=== PATIENT | male | born 1980 | race Caucasian/White ===

== ENCOUNTER 2022-04-17 13:14 | Inpatient (IN) | payer BC, MEDICAID ==
--- NOTE | 2022-04-17 14:13 | ED ---
Psych HPI - General Chief Complaint: Psychiatric Symptoms Stated Complaint: Suicidal Time Seen by Provider: 04/17/22 13:35 Source: patient, EMS Mode of arrival: EMS - History of Present Illness MD Complaint: suicidal ideation, feels depressed -: week(s) Associated Psychiatric Symptoms: depression, suicidal ideation History of same: Yes Quality: getting worse Improves With: none Worsens With: none Associated Symptoms: denies other symptoms - Related Data Home Medications Medication Instructions Recorded Confirmed LORazepam 0.5 mg PO DAILY PRN 04/17/22 04/17/22 Lisdexamfetamine Dimesylate 40 mg PO DAILY 04/17/22 04/17/22 [Vyvanse] Venlafaxine HCl ER [Effexor Xr] 75 mg PO DAILY 04/17/22 04/17/22 Allergies Allergy/AdvReac Type Severity Reaction Status Date / Time No Known Allergies Allergy Verified 04/17/22 20:11 Review of Systems ROS Statement: Those systems with pertinent positive or pertinent negative responses have been documented in the HPI. ROS Other: All systems not noted in ROS Statement are negative. Constitutional: Denies: fever, chills Respiratory: Denies: cough, dyspnea Cardiovascular: Denies: chest pain, palpitations Gastrointestinal: Denies: abdominal pain, vomiting, diarrhea Genitourinary: Denies: dysuria, hematuria Musculoskeletal: Denies: back pain Skin: Denies: rash Neurological: Denies: headache, weakness Psychiatric: Reports: depression, suicidal thoughts. Denies: auditory hallucinations, visual hallucinations, homicidal thoughts Past Medical History Past Medical History: No Reported History History of Any Multi-Drug Resistant Organisms: None Reported Past Surgical History: No Surgical Hx Reported Past Psychological History: Anxiety, Depression Smoking Status: Never smoker Past Alcohol Use History: Heavy Past Drug Use History: None Reported - Past Family History family Additional Family Medical History / Comment(s): no reported history of cancer or heart disease General Exam Limitations: no limitations General appearance: alert, in no apparent distress Head exam: Present: atraumatic, normocephalic Eye exam: Present: normal appearance. Absent: scleral icterus, conjunctival injection ENT exam: Present: normal oropharynx Neck exam: Present: normal inspection Respiratory exam: Present: normal lung sounds bilaterally. Absent: respiratory distress, wheezes, rales, rhonchi, stridor Cardiovascular Exam: Present: regular rate, normal rhythm, normal heart sounds. Absent: systolic murmur, diastolic murmur, rubs, gallop GI/Abdominal exam: Present: soft. Absent: distended, tenderness, guarding, rebound, rigid, mass Extremities exam: Present: normal inspection, normal capillary refill. Absent: pedal edema, calf tenderness Back exam: Present: normal inspection. Absent: CVA tenderness (R), CVA tenderness (L) Neurological exam: Present: alert Psychiatric exam: Present: depressed, suicidal ideation. Absent: agitated, anxious, flat affect, manic, homicidal ideation Skin exam: Present: warm, dry, intact, normal color. Absent: rash Course Vital Signs 04/17/22 04/17/22 13:16 22:41 Temperature 97.7 F Pulse Rate 124 H Pulse Rate [ 88 Pulse Oximetery ] Respiratory 20 18 Rate Blood Pressure 169/94 Blood Pressure 161/111 [Left Arm] O2 Sat by Pulse 96 98 Oximetry Medical Decision Making - Lab Data Result diagrams: 04/18/22 06:12 04/21/22 13:08 Lab Results 04/17/22 Range/Units 19:51 Coronavirus (PCR) Not Detected (Not Detectd) Disposition Clinical Impression: Mood disorder, Suicidal ideation Disposition: ADMITTED IP TO THIS HOSP Condition: Fair Is patient prescribed a controlled substance at d/c from ED?: No
[2022-04-17] MEDS ORDERED: LORazepam 1 MG TAB PO STA (18:43)
[2022-04-17] MEDS ORDERED: ACETAMINOPHEN TAB 325 MG TAB PO PRN (21:24)
[2022-04-17] MEDS ORDERED: MAG HYDROX/AL HYDROX/SIMETH 30 ML CUP PO PRN (21:24)
[2022-04-17] MEDS ORDERED: MAGNESIUM HYDROXIDE 2,400 MG/10 ML CUP PO PRN (21:24)
[2022-04-17] MEDS ORDERED: LORazepam 1 MG/0.5 ML VIAL IM PRN (21:28)
[2022-04-17] MEDS ORDERED: haloperidoL 5 MG TAB PO PRN (21:28)
[2022-04-17] MEDS ORDERED: LORazepam 1 MG TAB PO PRN (21:28)
[2022-04-17] MEDS ORDERED: HALOPERIDOL LACTATE 5 MG/ML 1 ML VIAL IM PRN (21:28)
[2022-04-17] MEDS: chlordiazePOXIDE 25 MG CAP PO SCH (23:58)
--- NOTE | 2022-04-18 03:33 | P.MDCNMH ---
History of Present Illness H&P Date: 04/17/22 Chief Complaint: psych eval 41 year old male denies any past medical history except for depression patient comes in for evaluation due to suicidal thoughts, he is going through a divorce, and feels overwhelmed, very depressed and hopeless. denies any medical concerns , denies fever, chills, URI , abd pain , nausea or vomiting denies smoking, or illicit drugs, occasional alcohol Review of Systems Pertinent positives as noted in HPI. All other systems were reviewed and are negative Past Medical History Past Medical History: No Reported History History of Any Multi-Drug Resistant Organisms: None Reported Past Surgical History: No Surgical Hx Reported Past Psychological History: Anxiety, Depression Smoking Status: Never smoker Past Alcohol Use History: Heavy Past Drug Use History: None Reported - Past Family History family Additional Family Medical History / Comment(s): no reported history of cancer or heart disease Medications and Allergies Home Medications Medication Instructions Recorded Confirmed Type LORazepam 0.5 mg PO DAILY PRN 04/17/22 04/17/22 History Lisdexamfetamine Dimesylate 40 mg PO DAILY 04/17/22 04/17/22 History [Vyvanse] Venlafaxine HCl ER [Effexor Xr] 75 mg PO DAILY 04/17/22 04/17/22 History Allergies Allergy/AdvReac Type Severity Reaction Status Date / Time No Known Allergies Allergy Verified 04/17/22 20:11 Physical Exam Vitals: Vital Signs Temp Pulse Pulse Resp BP BP Pulse Ox 04/17/22 22:41 97.7 F 88 18 161/111 98 04/17/22 13:16 124 H 20 169/94 96 Intake and Output 04/17/22 04/17/22 04/18/22 14:59 22:59 06:59 Other: Weight 111.13 kg 110.308 kg Constitutional: No acute distress, conversant cooperative Eyes: Anicteric sclerae, moist conjunctiva, Pupils equal round reactive to light ENMT: NC/AT Oropharynx clear, no erythema, or exudates Neck: Supple, no masses, or JVD No carotid bruits No thyromegaly Lungs: Clear to auscultation Clear to percussion Normal respiratory effort, no accessory muscle use Cardiovascular: Heart regular in rate and rhythm, No murmurs, gallops, or rubs No peripheral edema Abdominal: Soft Nontender, no guarding, rebound or rigidity Abdomen moving with respiration Normoactive bowel sounds No hepatomegaly, No splenomegaly No palpable mass No abdominal wall hernia noted Skin: Normal temperature, tone, texture, turgor No induration No subcutaneous nodules No rash, lesions No ulcers Extremities: No digital cyanosis No clubbing Pedal pulses intact and symmetrical Radial pulses intact and symmetrical No calf tenderness Psychiatric: Alert and oriented to person, place and time depressed affect Neuro Muscles Strength 5/5 in all 4 extremities Sensation to light touch grossly present throughout Cranial nerves II-XII grossly intact Lymphatics: no palpable cervical or supraclavicular lymph nodes Cranial Nerve Examination - Cranial Nerves Cranial Nerve II- Optic: Intact Cranial Nerve III- Oculomotor: Intact Cranial Nerve IV- Trochlear: Intact Cranial Nerve V- Trigeminal: Intact Cranial Nerve - Abducens: Intact Cranial Nerve VII- Facial: Intact Cranial Nerve VIII- Auditory: Intact Cranial Nerve IX- Glossopharyngeal: Intact Cranial Nerve X- Vagus: Intact Cranial Nerve XI- Accessory: Intact Cranial Nerve XII- Hypoglossal: Intact Assessment and Plan Assessment: depression and suicidal ideation management per psych obesity counseled regarding life style modification and weight loss follow up blood work Thank you for allowing us to participate in the care of this patient. We will follow peripherally. Do not hesitate to contact us with questions. Someone can be reached from the [facility] hospitalist group at all hours of the day at [phone].
[2022-04-18 07:07] LABS: Basophils % (A) 0 %; Eosinophils # (A) 0.1 k/uL (0-0.7); Eosinophils % (A) 2 %; HCT 48.3 % (39.0-53.0); Lymphocytes % (A) 28 %; MCH 32.3 pg (25.0-35.0); MCHC 33.1 g/dL (31.0-37.0); MCV 97.5 fL (80.0-100.0); Mean Platelet Volume 7.7; Monocytes # (A) 0.2 k/uL (0-1.0); Monocytes % (A) 5 %; Neutrophils # (A) 2.2 k/uL (1.3-7.7); Neutrophils % (A) 62 %; Platelet Count 240 k/uL (150-450); RBC 4.95 m/uL (4.30-5.90); RDW 12.9 % (11.5-15.5); WBC 3.5 k/uL (3.8-10.6)
[2022-04-18 07:41] LABS: ALT 115 U/L (4-49); AST 73 U/L (17-59); African American GFR (CKD) >90 (>60 ml/min/1.73 sqM); Albumin 4.2 g/dL (3.5-5.0); Alkaline Phosphatase 64 U/L (38-126); Anion Gap 11 mmol/L; Bilirubin, Delta 0.4 mg/dL (0.0-0.2); Bilirubin,Unconjugated 0.3 mg/dL (0.0-1.1); Blood Urea Nitrogen 8 mg/dL (9-20); Calcium 8.8 mg/dL (8.4-10.2); Carbon Dioxide 27 mmol/L (22-30); Chloride 101 mmol/L (98-107); Glucose 92 mg/dL (74-99); Non-African American GFR(CKD) >90 (>60 ml/min/1.73 sqM); Potassium 4.6 mmol/L (3.5-5.1); Sodium 139 mmol/L (137-145); Total Bilirubin 0.7 mg/dL (0.2-1.3); Total Protein 6.5 g/dL (6.3-8.2)
[2022-04-18] MEDS ORDERED: VENLAFAXINE HCL ER 75 MG CAP PO SCH (09:00)
[2022-04-18] MEDS: chlordiazePOXIDE 25 MG CAP PO SCH ×3 (09:04→20:42)
[2022-04-18] MEDS: NICOTINE 14MG/24HR PATCH TRANSDERM SCH (09:05)
[2022-04-18] MEDS: THIAMINE 100 MG TAB PO SCH (09:05)
[2022-04-18] MEDS: FOLIC ACID 1 MG TAB PO SCH (09:05)
[2022-04-18 10:51] LABS: Chol/HDL Ratio 3.61 Ratio; LDL Cholesterol,Calculated 165.8 mg/dL (0.0-131.0)
[2022-04-18] MEDS ORDERED: VENLAFAXINE HCL ER 75 MG CAP PO STA (11:23)
--- NOTE | 2022-04-18 12:00 | P.HP ---
Psychiatric H&P - . H&P Date: 04/18/22 History & Physical: Allergies Allergy/AdvReac Type Severity Reaction Status Date / Time No Known Allergies Allergy Verified 04/17/22 20:11 Vital Signs Temp 97.8 F 04/18/22 06:23 Pulse 96 04/18/22 06:23 Resp 18 04/18/22 06:23 BP 143/66 04/18/22 06:23 Pulse Ox 98 04/17/22 22:41 FiO2 Intake & Output 04/17/22 04/18/22 04/18/22 18:59 06:59 18:59 Weight 111.13 kg 110.308 kg Laboratory Last Values WBC 3.5 k/uL (3.8-10.6) L 04/18/22 06:12 RBC 4.95 m/uL (4.30-5.90) 04/18/22 06:12 Hgb 16.0 gm/dL (13.0-17.5) 04/18/22 06:12 Hct 48.3 % (39.0-53.0) 04/18/22 06:12 MCV 97.5 fL (80.0-100.0) 04/18/22 06:12 MCH 32.3 pg (25.0-35.0) 04/18/22 06:12 MCHC 33.1 g/dL (31.0-37.0) 04/18/22 06:12 RDW 12.9 % (11.5-15.5) 04/18/22 06:12 Plt Count 240 k/uL (150-450) 04/18/22 06:12 MPV 7.7 04/18/22 06:12 Neutrophils % 62 % 04/18/22 06:12 Lymphocytes % 28 % 04/18/22 06:12 Monocytes % 5 % 04/18/22 06:12 Eosinophils % 2 % 04/18/22 06:12 Basophils % 0 % 04/18/22 06:12 Neutrophils # 2.2 k/uL (1.3-7.7) 04/18/22 06:12 Lymphocytes # 1.0 k/uL (1.0-4.8) 04/18/22 06:12 Monocytes # 0.2 k/uL (0-1.0) 04/18/22 06:12 Eosinophils # 0.1 k/uL (0-0.7) 04/18/22 06:12 Basophils # 0.0 k/uL (0-0.2) 04/18/22 06:12 Sodium 139 mmol/L (137-145) 04/18/22 06:12 Potassium 4.6 mmol/L (3.5-5.1) 04/18/22 06:12 Chloride 101 mmol/L (98-107) 04/18/22 06:12 Carbon Dioxide 27 mmol/L (22-30) 04/18/22 06:12 Anion Gap 11 mmol/L 04/18/22 06:12 BUN 8 mg/dL (9-20) L 04/18/22 06:12 Creatinine 0.83 mg/dL (0.66-1.25) 04/18/22 06:12 Est GFR (CKD-EPI)AfAm >90 (>60 ml/min/1.73 sqM) 04/18/22 06:12 Est GFR (CKD-EPI)NonAf >90 (>60 ml/min/1.73 sqM) 04/18/22 06:12 Glucose 92 mg/dL (74-99) 04/18/22 06:[address] Glu mg/dL 112 04/18/22 06:12 Hemoglobin A1c 5.5 % (0.0-6.0) 04/18/22 06:12 Calcium 8.8 mg/dL (8.4-10.2) 04/18/22 06:12 Total Bilirubin 0.7 mg/dL (0.2-1.3) 04/18/22 06:12 Conjugated Bilirubin 0.0 mg/dL (0.0-0.3) 04/18/22 06:12 Unconjugated Bilirubin 0.3 mg/dL (0.0-1.1) 04/18/22 06:12 Delta Bilirubin 0.4 mg/dL (0.0-0.2) H 04/18/22 06:12 AST 73 U/L (17-59) H 04/18/22 06:12 ALT 115 U/L (4-49) H 04/18/22 06:12 Alkaline Phosphatase 64 U/L (38-126) 04/18/22 06:12 Total Protein 6.5 g/dL (6.3-8.2) 04/18/22 06:12 Albumin 4.2 g/dL (3.5-5.0) 04/18/22 06:12 Triglycerides 118.00 mg/dL (0.00-149.00) 04/18/22 06:12 Cholesterol 262.00 mg/dL (0.00-200.00) H 04/18/22 06:12 LDL Cholesterol, Calc 165.8 mg/dL (0.0-131.0) H 04/18/22 06:12 VLDL Cholesterol, Calc 23.60 mg/dL (5.00-40.00) 04/18/22 06:12 HDL Cholesterol 72.60 mg/dL (40.00-60.00) H 04/18/22 06:12 Cholesterol/HDL Ratio 3.61 Ratio 04/18/22 06:12 TSH 5.180 mIU/L (0.465-4.680) H 04/18/22 06:12 Coronavirus (PCR) Not Detected (Not Detectd) 04/17/22 19:51 04/18/22 11:59 IDENTIFYING DATA: Patient is a , employed, 41-year-old male with significant history of depression who presents to our hospital for depression and attempted suicide in the context of divorce. HPI: Patient presented to the hospital on 04/17/2022, brought into the hospital by EMS after an attempted suicide. The patient reports that he was planning to kill himself over the past week however have the opportunity yesterday as he was driving down to [place] for work. He reports that he pulled over at a rest stop and had his firearm with him. He states that he had been drinking and had "mustered out the liquid courage to do so." He states that his called him and was able to convince him not to kill himself. Police and his brother were notified and the patient was brought to the hospital. He was subsequently admitted to the psychiatric unit and signed formal voluntary. Upon evaluation the psychiatric unit, the patient reports that he has been feeling increasingly depressed for the past 6 years however upon learning of his 's intention to his divorce on March 14 of this year, his depression has significantly worsened. The patient does endorse significant symptoms of depression including anhedonia, decreased hygiene and grooming, irregular appetite, increased sleep, decreased energy, hopelessness, helplessness, as well as suicidal ideation. He reports that he has been contemplating suicide for the past week however only "obtained the courage." to try to kill himself prior to this admission. Aside from this time with the firearm, the patient reports no previous suicide. The patient reports ongoing stressors with his . He states that depressive symptoms have caused a significant strain in their relationship but ultimately led up to this divorce. He reports that he has had extremely low self-esteem and excessive periods of sleep much to her annoyance. He also informs his provider that they have not been sexually active for the past year and a half. In regards to other mood symptoms, the patient does report a history of excessive energy and increased goal-directed activity. He describes being awake during farias for a few days on end with only 30 minutes to an hour of sleep per night. He however is not reporting any significant impulsivity, grandiosity, or mood lability. He denies any history of pressured speech. The patient is denying any significant history of auditory or visual hallucinations. He denies any paranoia or other delusions. He does admit to a negative internal dialogue and is often self-deprecating and informing him that he is worthless. He is admitted for further evaluation and management of depression. PAST PSYCHIATRIC HISTORY: Patient states that he has been previously diagnosed with depression and anxiety. Prior to going to [facility] for outpatient treatment, he was open with Dr Milan. He is currently prescribed a regimen of Effexor, Vyvanse, and Ativan. This is the patient's first inpatient psychiatric admission. Aside from this current episode, he reports no previous attempts at suicide. PMH: Past Medical History: No Reported History History of Any Multi-Drug Resistant Organisms: None Reported Past Surgical History: No Surgical Hx Reported Past Psychological History: Anxiety, Depression Smoking Status: Never smoker Past Alcohol Use History: Heavy Past Drug Use History: None Reported ALLERGIES: NO KNOWN DRUG ALLERGIES CHEMICAL DEPENDENCY HISTORY: The patient reports no tobacco use, marijuana use, or illicit drug use. He does report a history of experimenting with various drugs and marijuana in the past. The patient states that he has been drinking approximately 6 alcoholic beverages per night for the past 6 months. He denies any history of substance abuse treatment or withdrawal. FAMILY PSYCHIATRIC/SUBSTANCE USE HISTORY: The patient reports that his father's side of the family has depression. He reports a family history of suicide. SOCIAL HISTORY: Patient was born and raised in [place]. He attended [employer]. He is currently to his Shantell for the past 8 years. There are undergoing the process of divorce. They have a 10-year-old son together named Hugo. 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 He lives with his and son. He reports no orthodoxy affiliation. MENTAL STATUS EXAM: General Appearance: Patient appears to be stated age is alert, directable, and attempts to cooperate. Patient appears to have disheveled hygiene and grooming. Behavior: Patient is seated without any agitated behavior. Psychomotor slowing was evident. Tearful. Speech: Patient's speech is fluent and nonpressured. Spontaneous. Mood/Affect: Patient reports their mood is depressed, affect is congruent and withdrawn and melancholic. Suicidality/Homicidality: Patient is currently denying any suicidal or homicidal ideation. Admits to suicidal ideation over the past week leading up to this attempt. Perceptions: Patient denies any visual hallucinations and denies any auditory hallucinations Though content/process: There is no evidence of any delusional thought content a nd thought process is dysphoric. Memory and concentration: AOX3, grossly intact for the purposes of this session. Can spell "WORLD" backwards Judgment and insight: Fair STRENGTHS/WEAKNESSES: strength is that patient has significant supports. Weakness is that patient dealing with divorce and engages in heavy alcohol use. INTELLECT: average IMPRESSIONS: Major depressive disorder, recurrent, severe Alcohol use disorder Rule out bipolar depression PLAN: -Patient is admitted under voluntary status to [facility] for stabilization of psychiatric symptoms and safety. Patient signed adult voluntary form and medication consent and is placed in patient's chart. Patient is at high risk for suicide due to recent attempt, access to firearms, ongoing divorce/psychosocial stressors, and active organic depression. -Medications : Increase Effexor XR to 150 mg by mouth daily for depression/anxiety Start Seroquel 50 mg by mouth at bedtime for mood augmentation Librium for alcohol withdrawal -Ativan and Haldol PRN for agitation/aggression -CIWA protocol with Ativan PRN for ETOH withdrawal -Patient was counselled on substance abuse and desired to cut back on use -Patient was informed of the risks, benefits and side effects of the medication and patient verbally consented to taking the medications. Patient signed med consent form and was placed in chart. -Internal Medicine consult to perform medical evaluation and physical. -SW on board for discharge planning. Encourage patient to participate in groups to work on coping skills. 04/18/22 12:00
[2022-04-18] MEDS: QUEtiapine 50 MG TAB PO SCH (20:42)
[2022-04-19] MEDS: chlordiazePOXIDE 25 MG CAP PO SCH ×2 (08:41→21:05)
[2022-04-19] MEDS: FOLIC ACID 1 MG TAB PO SCH (08:42)
[2022-04-19] MEDS: VENLAFAXINE HCL ER 150 MG CAP PO SCH (08:42)
[2022-04-19] MEDS: THIAMINE 100 MG TAB PO SCH (08:42)
[2022-04-19] MEDS: NICOTINE 14MG/24HR PATCH TRANSDERM SCH (08:44)
--- NOTE | 2022-04-19 12:43 | P.PN ---
Progress Note - Text Progress Note Date: 04/19/22 Interval History: Patient was seen wandering the hallways and was directable and agreeable to speak with card writer hand in the office. Currently, the patient reports that he is feeling slightly better. He states that he was giving a lot of thought to how his son would be at increased risk of harming himself if he was to commit suicide. He reports that this "really hit home for me." He is appropriately tearful throughout the interview. He is currently denying any suicidal or homicidal ideation, intention, and/or plan. He is not reporting any auditory or visual hallucinations. Reports some paranoia or other delusions. He reports feeling activated and slightly anxious with increase in his Effexor. He does up with that he was able to sleep well last night. Mental Status Exam: General Appearance: Patient appears to be stated age is alert, directable, and cooperative. Behavior: Patient is calmly seated without any agitated behavior. Appropriately tearful. Speech: Patient's speech is fluent and nonpressured. Mood/Affect: Mood is improving mildly, affect is congruent and sad. Suicidality/Homicidality: Patient denies having any suicidal or homicidal ideation intent or plan. Perceptions: Patient denies any visual hallucinations and denies any auditory hallucinations Though content/process: There is no evidence of any delusional thought content and thought process is linear and goal-directed. Memory and concentration: AOX3, grossly intact for the purposes of this session Judgment and insight: Improving mildly Vital Signs Temp 98.1 F 04/19/22 06:47 Pulse 66 04/19/22 06:47 Resp 14 04/19/22 06:47 BP 124/85 04/19/22 06:47 Pulse Ox 99 04/19/22 06:47 FiO2 Assessment Major depressive disorder, recurrent, severe Alcohol use disorder Rule out bipolar depression Plan: -Patient continues to meet criteria for inpatient psychiatric admission for symptom stabilization and safety. Patient has signed adult voluntary form and medication consent and was placed in patient's chart. -Medications: Effexor XR 150 mg daily for depression/anxiety Seroquel 50 mg by mouth at bedtime for mood augmentation We will taper Librium to 25 mg by mouth twice a day. Please taper over the weekend. -When necessary Ativan and Haldol for agitation/aggression. -SW on board for discharge planning. Encouraged the patient to participate in milieu.
[2022-04-19] MEDS: QUEtiapine 50 MG TAB PO SCH (21:05)
[2022-04-20] MEDS: NICOTINE 14MG/24HR PATCH TRANSDERM SCH (09:33)
[2022-04-20] MEDS: chlordiazePOXIDE 25 MG CAP PO SCH ×2 (09:33→20:31)
[2022-04-20] MEDS: FOLIC ACID 1 MG TAB PO SCH (09:33)
[2022-04-20] MEDS: THIAMINE 100 MG TAB PO SCH (09:33)
[2022-04-20] MEDS: VENLAFAXINE HCL ER 150 MG CAP PO SCH (09:34)
[2022-04-20] MEDS: QUEtiapine 50 MG TAB PO SCH (20:31)
--- NOTE | 2022-04-20 21:33 | P.PN ---
Progress Note - Text Progress Note Date: 04/20/22 Interval history: Patient was seen wandering the hallways and was directable and agreeable to speak with display card writer. He reports feeling sad because he is not with his son who is participating in a hockey tournament today. At this time patient denies any suicidal or homicidal ideation, intent or plan. Denies any auditory or visual hallucinations. Patient denies any side effects from the medications and has been compliant with meds. Vitals reviewed and are stable. No signs of alcohol withdrawal on assessment. Mental status exam: General Appearance: Patient appears to be stated age, dressed in casual attire, adequate hygiene. Behavior: No agitated behavior. Patient is calm and directable. Speech: Patient's speech is fluent and non-pressured. Mood/Affect: Mood is sad, affect is congruent and constricted. Suicidality/Homicidality: Patient denies having any suicidal or homicidal ideation intent or plan. Perceptions: Patient denies any auditory or visual hallucinations. Though content/process: There is no evidence of any delusional thought content and thought process is linear and goal-directed. Memory and concentration: AOX3, grossly intact for the purposes of this session Judgment and insight: improving mildly Assessment/Plan: Continue with current diagnosis. Patient continues to meet criteria for inpatient psychiatric admission for symptom stabilization and safety. Taper down Librium to 25 mg daily for Friday then discontinue. Monitor for medication compliance and for any psychotropic medication side effects. Will continue to monitor ongoing response to treatment. Encouraged participation in milieu.
[2022-04-21] MEDS ORDERED: chlordiazePOXIDE 25 MG CAP PO SCH (09:00)
[2022-04-21] MEDS: VENLAFAXINE HCL ER 150 MG CAP PO SCH (09:16)
[2022-04-21] MEDS: THIAMINE 100 MG TAB PO SCH (09:16)
[2022-04-21] MEDS: FOLIC ACID 1 MG TAB PO SCH (09:16)
[2022-04-21] MEDS: NICOTINE 14MG/24HR PATCH TRANSDERM SCH (09:16)
[2022-04-21] MEDS: IBUPROFEN 600 MG TAB PO PRN ×2 (09:17→21:03)
[2022-04-21 13:36] LABS: ALT 116 U/L (4-49); AST 72 U/L (17-59); African American GFR (CKD) >90 (>60 ml/min/1.73 sqM); Albumin 4.6 g/dL (3.5-5.0); Alkaline Phosphatase 65 U/L (38-126); Anion Gap 8 mmol/L; Blood Urea Nitrogen 11 mg/dL (9-20); Carbon Dioxide 27 mmol/L (22-30); Chloride 102 mmol/L (98-107); Glucose 101 mg/dL (74-99); Non-African American GFR(CKD) >90 (>60 ml/min/1.73 sqM); Potassium 4.7 mmol/L (3.5-5.1); Sodium 137 mmol/L (137-145); Total Bilirubin 0.6 mg/dL (0.2-1.3); Total Protein 7.2 g/dL (6.3-8.2)
[2022-04-21] MEDS: QUEtiapine 50 MG TAB PO SCH (21:03)
--- NOTE | 2022-04-21 21:40 | P.PN ---
Progress Note - Text Progress Note Date: 04/21/22 Interval history: Patient was seen wandering the hallways and was directable and agreeable to speak with handbook writer. He reports improved mood, sleep and appetite. He feels the Effexor is helping with his anxiety. He denies alcohol withdrawal symptoms. Vital signs stable. At this time patient denies any suicidal or homicidal ideation, intent or plan. Denies any auditory or visual hallucinations. Patient denies any side effects from the medications and has been compliant with meds. He has been attending groups. Mental status exam: General Appearance: Patient appears to be stated age, dressed in casual attire, adequate hygiene. Behavior: No agitated behavior. Patient is calm and directable. Speech: Patient's speech is fluent and non-pressured. Mood/Affect: Mood is improving, affect is congruent and constricted. Suicidality/Homicidality: Patient denies having any suicidal or homicidal ideation intent or plan. Perceptions: Patient denies any auditory or visual hallucinations. Though content/process: There is no evidence of any delusional thought content and thought process is linear and goal-directed. Memory and concentration: AOX3, grossly intact for the purposes of this session Judgment and insight: improving mildly Assessment/Plan: Continue with current diagnosis. Patient continues to meet criteria for inpatient psychiatric admission for symptom stabilization and safety. Discontinue Librium today since alcohol withdrawal has resolved. Monitor for medication compliance and for any psychotropic medication side effects. Will continue to monitor ongoing response to treatment. Encouraged participation in milieu.
[2022-04-22] MEDS: VENLAFAXINE HCL ER 150 MG CAP PO SCH (08:37)
[2022-04-22] MEDS: THIAMINE 100 MG TAB PO SCH (08:37)
[2022-04-22] MEDS: FOLIC ACID 1 MG TAB PO SCH (08:37)
--- NOTE | 2022-04-22 11:04 | P.PN ---
Progress Note - Text Progress Note Date: 04/22/22 S&O: Recent was seen in rounds. Patient was admitted on 04/17/2022 since he was considered to be a suicide risk. Apparently he has been drinking 7-8 drinks of vodka a day for over a month and has been having problem with his who had asked for a divorce. Apparently he pulled over at the wrist area, his called, he told her about his desire to shoot himself, his convinced him to lock the gun in the trunk and then he was brought to the hospital. Patient said he has been taking Effexor XR 75 mg a day from his psychiatrist for depression for a while and it has not been helping him much. Since he came to the hospital it was increased 250 mg a day and was also started on Seroquel 50 mg at bedtime. He said Seroquel has helped him sleep better at night and does not have his mind thinking about too many things at night. He insists that he was not having any morning shakes or having had any blackout spells from drinking. He denies abusing drugs. 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 Currently he said he feels better and is not a suicide risk anymore. He said he plans on living with his father and continue with his medications and counseling after he leaves the hospital. This is a right ambulatory male with adequate hygiene. He is polite and cooperative. He does not show any psychomotor agitation or retardation. His speech is spontaneous relevant and goal-directed. His mood is euthymic to cheerful and affect is appropriate. He denies hallucinations delusional thinking suicide and homicide thoughts. His sensorium is clear. A&P: He has a diagnosis of major depressive disorder recurrent severe. However severe major depression does not get better in a few days they will this diagnosis appears to be questionable. Continue his current medications and therapy. Consider discharging him tomorrow.
[2022-04-22] MEDS: IBUPROFEN 600 MG TAB PO PRN ×2 (13:32→21:21)
[2022-04-22] MEDS: QUEtiapine 50 MG TAB PO SCH (21:21)
[2022-04-23 06:49] VITALS: BP 109/77; PULSE 61; RESP 18; TEMP 98.4
[2022-04-23] MEDS: IBUPROFEN 600 MG TAB PO PRN (07:58)
[2022-04-23] MEDS: VENLAFAXINE HCL ER 150 MG CAP PO SCH (07:58)
[2022-04-23] MEDS: FOLIC ACID 1 MG TAB PO SCH (07:58)
[2022-04-23] MEDS: THIAMINE 100 MG TAB PO SCH (07:58)
--- NOTE | 2022-04-23 11:47 | P.DS ---
Providers Date of admission: 04/17/22 21:20 Expected date of discharge: 04/23/22 Attending physician: Miles Velasquez MD Consults: 04/17/22 21:24 Consult Physician Routine Consulting Provider: Awa Du Consult Reason/Comments: Medical H&P Do you want consulting provider notified?: Yes Primary care physician: Stated None Hospital Course: Patient had his psychiatric H&P done by on 04/18/2022 and general medical H&P done by Dr. Lau on 04/17/2022. After his psychiatric evaluation he was started on Seroquel 50 mg at bedtime and his Effexor was increased to 150 mg a day. He also started to get individual therapy group therapy and recreational therapy and occupational therapy in the unit patient started to feel better quite shortly, did not have any suicidal thoughts and did not have any withdrawal symptoms from alcohol. His insight improved and he agreed to go through rehab. He tolerated medications well without any adverse effect. His mood has been euthymic to cheerful and affect has been appropriate. He continues to deny suicide and homicide thoughts. He also denies hallucinations and delusional thinking. His progress and discharge plans were discussed by the treatment team this morning and it was agreed to discharge him today. He will go home and then go to the rehab. Assessment: Patient's discharge diagnosis are 1. Depressive disorder unspecified. 2. Alcohol use disorder severe. Patient Condition at Discharge: Good Plan - Discharge Summary Discharge Rx Participant: Yes New Discharge Prescriptions: New Venlafaxine HCl ER [Effexor XR] 150 mg PO DAILY 30 Days #30 cap Mag Hydrox/Al Hydrox/Simeth [Maalox] 30 ml PO Q4HR PRN ml PRN Reason: GI Upset QUEtiapine [SEROquel] 50 mg PO HS 30 Days #30 tab Acetaminophen Tab [Tylenol] 650 mg PO Q4HR PRN tab PRN Reason: Pain/Discomfort Discontinued Venlafaxine HCl ER [Effexor Xr] 75 mg PO DAILY LORazepam 0.5 mg PO DAILY PRN PRN Reason: Anxiety Lisdexamfetamine Dimesylate [Vyvanse] 40 mg PO DAILY Discharge Medication List Acetaminophen Tab [Tylenol] 650 mg PO Q4HR PRN tab 04/23/22 [Rx] Mag Hydrox/Al Hydrox/Simeth [Maalox] 30 ml PO Q4HR PRN ml 04/23/22 [Rx] QUEtiapine [SEROquel] 50 mg PO HS 30 Days #30 tab 04/23/22 [Rx] Venlafaxine HCl ER [Effexor XR] 150 mg PO DAILY 30 Days #30 cap 04/23/22 [Rx] Follow up Appointment(s)/Referral(s): [facility] [Other] - 04/30/22 9:30 am (Cam 04/30 @ 09:30 Cam 07/09/2022 @ 09:30) [facility] [[facility] - 1 Week Patient Instructions/Handouts: Depression (DC) Activity/Diet/Wound Care/Special Instructions: Avoid the use of street drugs and alcohol. Take all prescriptions as prescribed. When you are in need of refills on your medications, please contact your medical provider and/or outpatient psychiatrist to have this done. Please go to scheduled outpatient appointment for aftercare treatment. If symptoms return or become worse, call the crisis line at and/or go to the nearest emergency room for evaluation.
== END 2022-04-23 12:04 | disposition home or self-care (01) | DRG 881 ==
LOC: EC 13:14 → 3MHU 21:20
PROVIDERS: ADMIT Psychiatry & Neurology Psychiatry; ATTEND Psychiatry & Neurology Psychiatry
DX: F32.A Depression, unspecified (principal); R45.851 Suicidal ideations; F10.20 Alcohol dependence, uncomplicated; F22 Delusional disorders; F41.9 Anxiety disorder, unspecified; Z81.8 Family history of other mental and behavioral disorders; Z20.822 Contact with and (suspected) exposure to COVID-19
CPT/HCPCS: 80053; 80061; 82075; 82248; 83036; 84439; 84443; 85025; 87635; 99285

== ENCOUNTER → 2023-04-21 | Outpatient (CLI) | payer BC ==
--- NOTE | 2023-05-02 13:24 | EM ---
EVENT MONITOR STUDY PERFORMED: This is a 7-day event monitor. FINDINGS: All available rhythm strips were reviewed. Sinus rhythm and predominantly sinus tachycardia were seen pretty much throughout. There was no evidence of any other arrhythmia. Almost all of these symptoms were triggered by the patient. There was some auto capture rhythm strips, but no significant arrhythmia was noted. FINAL IMPRESSION: Sinus rhythm and sinus tachycardia noted. No significant arrhythmia. MMODL / IJN: [id number] /
== END | disposition home or self-care (01) ==
LOC: RADECHMAIN 07:18
PROVIDERS: ATTEND Family Medicine
DX: I47.11 Inappropriate sinus tachycardia, so stated (principal)
CPT/HCPCS: 93270

== ENCOUNTER → 2023-05-14 | Outpatient (CLI) | payer BC ==
--- NOTE | 2023-05-14 11:40 | CA ---
Stress Echo Report Juve Dennis Age: 42 Gender: M : 1980 Exam Date: 05/14/2023 10:09 Exam Location: [facility] Ht (in): 71 Wt (lb): 225 Ordering Physician: Nithin Keller DO Referring Physician: ANA,, Transfer Driver: Vicky Granados [facility] Technologist Procedure CPT: Indication: I47.11 INAPPROPRIATE SINUS TACHYCARDIA, SO STATED ICD-9 Codes: Rhythm: Patient History: Tachycardia Cardiac Medications: CYMBALTA,,,,, Medications in past 24 hours: Contrast: Stress Results Protocol: Michael Total dose(mL): Exercise Duration (min:sec): 9:[address] Depression (mm): Angina Score: Boone Score: METS: 10.5 Resting HR: 130 Resting BP: 138 / 105 Peak HR: 182 Peak BP: 160 / 88 Max Predicted HR: 178 102 % Max Predicted HR Target HR: 151 Double Product: [id number] Stress Summary: BP Response: Reason for Termination: MAX EXERTION/TARGET HR Cardiac Symptoms: NO SYMPTOMS ECG Analysis Resting ECG: Normal sinus rhythm normal axis normal intervals Stress ECG: Patient exercised on Michael protocol for 9 minutes achieving 85% of predicted maximal heart rate without chest pain or diagnostic ST segment depression Arrhythmia: Echo Analysis Resting Echo: Normal left ventricular size wall motion systolic function Peak Echo Analysis: Normal hyperdynamic response of the anterior wall lateral wall septum Basal inferior wall seemed to become hypokinetic at peak exercise MEASUREMENTS (Male/Female) Normal Values CONCLUSIONS Good exercise tolerance Negative stress test by EKG criteria Exercise induced basal inferior wall hypokinesis Dr. Bakari Leonard MD (Electronically Signed) Final Date: 14 May 2023 11:39
== END | disposition home or self-care (01) ==
LOC: RADNMMAIN 09:04
PROVIDERS: ATTEND Family Medicine
DX: I47.11 Inappropriate sinus tachycardia, so stated (principal)
CPT/HCPCS: 93351